=== PATIENT | female | born 1990 | race Two or more races ===

== ENCOUNTER 2024-01-04 12:26 | Emergency (ER) | payer OTHER ==
[~2024-01-04] VITALS: Ht 137.2 cm; Wt 88.4 kg
[2024-01-04 12:37] VITALS: BP 155/92; PULSE 82; RESP 16; TEMP 98.6; O2SAT 98
== END 2024-01-04 15:29 | disposition left against medical advice (07) ==
LOC: ER 12:26
DX: N64.4 Mastodynia (principal); Z53.21 Procedure and treatment not carried out due to patient leaving prior to being seen by health care provider